=== PATIENT | female | born 1940 | race Caucasian/White ===

== ENCOUNTER 2024-06-19 18:36 | Inpatient (IN) | payer MEDICARE, BC, SELFPAY ==
[2024-06-19 15:26] VITALS: BP 185/84
[2024-06-19 15:56] VITALS: BP 179/65
--- NOTE | 2024-06-19 15:56 | ED.GENMED ---
History of Present Illness
<Alejandro Griggs PA-C - Last Filed: 06/19/24 19:38>
General
Chief Complaint: Swelling
Time Seen by Provider: 06/19/24 15:43
History of Present Illness
History of Present Illness:
84-year-old female with history of hypertension, cardiomyopathy, coronary artery disease, and hyperlipidemia presents to the emergency department for evaluation of shortness of breath on exertion and severe lower extremity edema. Patient has not
seen a healthcare provider in many years, in fact she estimates it has been at least 5 to 6 years since she was last evaluated by any healthcare providers. She had a fall 2 nights ago and needed EMS to come to help her back onto her feet, given
this her son traveled to visit her from another state and was concerned about her wellbeing. Patient states she can still adequately take care of herself and still leaves the home frequently to picking tech groceries or to run other errands.
Past History
<Alejandro Griggs PA-C - Last Filed: 06/19/24 19:38>
Past History
ED Past Medical History: HTN
ED Past Surgical History: Gynecological
Social History
Tobacco: Smoker
Alcohol: Occasional
Drug: None
Review of Systems
<Alejandro Griggs PA-C - Last Filed: 06/19/24 19:38>
Review of Systems
Allergies reviewed?: Yes
All Other Systems: ROS reviewed and negative except as documented in HPI and ROS
Phy Exam
<Alejandro Griggs PA-C - Last Filed: 06/19/24 19:38>
Physical Exam
Physical Exam:
GEN: Well appearing, NAD, WDWN
HEENT: Oral mucosa moist, no scleral icterus
Cardiac: Regular rate and rhythm, no murmur
Lung: No respiratory distress, no tachypnea, lungs CTAB
MSK: No gross deformity or injuries
Skin: Good color, no pallor or jaundice. Severe venous stasis dermatitis with massive edema of the lower extremities, copious skin sloughing and serous discharge
Neuro: AO x3, moves all extremities freely
Psych: Calm, cooperative
Scores
<Alejandro Griggs PA-C - Last Filed: 06/19/24 19:38>
Heart Failure Risk
Heart Failure Risk Score: Not Applicable
Course
<Alejandro Griggs PA-C - Last Filed: 06/19/24 19:38>
Orders/Labs/Results
Orders:
Orders
06/19/24 Breakfast
Regular
At Your Request: Limited Participation
06/19/24 15:56
Electrocardiogram (*1) Urgent
Reason for Study: Shortness of Breath
EKG- Treatment ONCE
CR Chest - 2 Views Urgent
Comment:
Reason For Exam: SOB/HUTCHISON
06/19/24 16:08
Complete Blood Count/No Diff Urgent
Comprehensive Metabolic Panel Urgent
NT-proBNP Urgent
Troponin I Urgent
06/19/24 17:20
CeFAZolin 2 GRAM [Ancef] 2 grams in 10 ml IV NOW
06/19/24 17:45
Admit/Transfer Patient As Directed
Co-Sign Provider:
Level of Care: Inpatient admission
Assign to:: Medical/Surgical
Physician / Group: paras
Diagnosis: cellulitis
Reason for Hospitalization: cellulitis
Expected length of stay greater than two midnights?: Yes
ELOS- Estimated Length of Stay in days: 3
I certify the patient meets the requirements for IP care: Yes
Code Status As Directed
Resuscitation Status: Full Code
PRN Pain Medication Management As Directed
May give lesser potent ordered pain med per pt: Yes
preference::
Protocol:: Medication orders for pain may be administered in a
manner that supports deferring to patient preference
when the pt is:
- Requesting an ordered lesser potent pain medication.
Least to most potent pain medications are defined
as: acetaminophen < NSAID < tramadol < opioids
(morphine, oxycodone, hydromorphone).
- Requesting a lesser dose of the same medication IF
ORDERED.
- Requesting a less intrusive route of administration
if both routes are prescribed by the provider (PO <
IV).
06/19/24 18:41
Enoxaparin Sodium [Lovenox] 40 mg SC QPM
06/19/24 18:41
WOUND/OSTOMY CONSULT Routine
Reason for Consult: b/l LE lymphedema
Activity As Directed
Activity Level: Out of Bed-Early Mobility
Intake/ Output As Directed
Frequency: Per unit guidelines
Vital Signs As Directed
Frequency: Per unit guidelines
Pt Eval And Treat Routine
Activity Level: As Tolerated
DX Deep Vein Thrombosis Video Routine
06/20/24 02:00
CeFAZolin 2 GRAM [Ancef] 2 grams in 10 ml IV Q8H
Abnormal Lab Results
06/19/24
16:08
MCHC 31.7 L g/dL
(33.0-37.0)
RDW 14.8 H %
(11.5-14.5)
Chloride 108 H mmol/L
(98-107)
BUN 20 H mg/dl
(7-17)
06/19/24 16:08
06/19/24 16:08
Vital Signs
Initial and Last Documented VS:
Initial Vital Signs
Temp Pulse Resp BP Pulse Ox
98.7 F 88 16 185/84 95
06/19/24 15:26 06/19/24 15:26 06/19/24 15:26 06/19/24 15:26 06/19/24 15:26
Last Documented Vital Signs
Temp Pulse Resp BP Pulse Ox
97.5 F 86 20 185/73 94
06/19/24 18:47 06/19/24 18:47 06/19/24 18:47 06/19/24 18:47 06/19/24 18:47
<Agustina Perera MD - Last Filed: 06/19/24 17:14>
Orders/Labs/Results
Orders:
Orders
06/19/24 Breakfast
Regular
At Your Request: Limited Participation
06/19/24 15:56
Electrocardiogram (*1) Urgent
Reason for Study: Shortness of Breath
EKG- Treatment ONCE
CR Chest - 2 Views Urgent
Comment:
Reason For Exam: SOB/HUTCHISON
06/19/24 16:08
Complete Blood Count/No Diff Urgent
Comprehensive Metabolic Panel Urgent
NT-proBNP Urgent
Troponin I Urgent
06/19/24 17:20
CeFAZolin 2 GRAM [Ancef] 2 grams in 10 ml IV NOW
06/19/24 17:45
Admit/Transfer Patient As Directed
Co-Sign Provider:
Level of Care: Inpatient admission
Assign to:: Medical/Surgical
Physician / Group: paras
Diagnosis: cellulitis
Reason for Hospitalization: cellulitis
Expected length of stay greater than two midnights?: Yes
ELOS- Estimated Length of Stay in days: 3
I certify the patient meets the requirements for IP care: Yes
Code Status As Directed
Resuscitation Status: Full Code
PRN Pain Medication Management As Directed
May give lesser potent ordered pain med per pt: Yes
preference::
Protocol:: Medication orders for pain may be administered in a
manner that supports deferring to patient preference
when the pt is:
- Requesting an ordered lesser potent pain medication.
Least to most potent pain medications are defined
as: acetaminophen < NSAID < tramadol < opioids
(morphine, oxycodone, hydromorphone).
- Requesting a lesser dose of the same medication IF
ORDERED.
- Requesting a less intrusive route of administration
if both routes are prescribed by the provider (PO <
IV).
06/19/24 18:41
Enoxaparin Sodium [Lovenox] 40 mg SC QPM
06/19/24 18:41
WOUND/OSTOMY CONSULT Routine
Reason for Consult: b/l LE lymphedema
Activity As Directed
Activity Level: Out of Bed-Early Mobility
Intake/ Output As Directed
Frequency: Per unit guidelines
Vital Signs As Directed
Frequency: Per unit guidelines
Pt Eval And Treat Routine
Activity Level: As Tolerated
DX Deep Vein Thrombosis Video Routine
06/20/24 02:00
CeFAZolin 2 GRAM [Ancef] 2 grams in 10 ml IV Q8H
Abnormal Lab Results
06/19/24
16:08
MCHC 31.7 L g/dL
(33.0-37.0)
RDW 14.8 H %
(11.5-14.5)
Chloride 108 H mmol/L
(98-107)
BUN 20 H mg/dl
(7-17)
06/19/24 16:08
06/19/24 16:08
Vital Signs
Initial and Last Documented VS:
Initial Vital Signs
Temp Pulse Resp BP Pulse Ox
98.7 F 88 16 185/84 95
06/19/24 15:26 06/19/24 15:26 06/19/24 15:26 06/19/24 15:26 06/19/24 15:26
Last Documented Vital Signs
Temp Pulse Resp BP Pulse Ox
97.5 F 86 20 185/73 94
06/19/24 18:47 06/19/24 18:47 06/19/24 18:47 06/19/24 18:47 06/19/24 18:47
<Alejandro Griggs PA-C - Last Filed: 06/19/24 19:38>
MDM/Problems Addressed
MDM/Problems Addressed:
Although labs are reassuring, pt is clearly not suitable to continue to manage her situation at home. She is not reliable as far as outpatient follow up, thus will benefit from inpatient hospitalization for antibiotics, wound care and possible case
management/PT/OT considerations
<Alejandro Griggs PA-C - Last Filed: 06/19/24 19:38>
*Critical Care Note
Total Time (30-74mins, 75-104mins- exclusive of procedures): Not Applicable
ED Attending Note
<Alejandro Griggs PA-C - Last Filed: 06/19/24 19:38>
-
Portions of this chart may have been created with voice recognition software.� Occasional wrong word or��sound alike� substitutions may have occurred due to the inherent limitations of voice recognition software.
<Agustina Perera MD - Last Filed: 06/19/24 17:14>
ED Attending Note
Patient seen and examined by attending physician: Yes
I performed the substantive portion of visit, reviewed & personally made and approve the management plan that is documented in note by myself or MIRELA.: Yes
ED Attending Note:
84 yr old female presents with le edema with foul smeeling weeping that was noted by son upon his visit now....he has not seen her in one year and was unaware of this. Pt salcido not seen a doctor in years. She says she can perform ADL's, however son
says she is 'barely getting by' , house is in disarray, etc. Pt does sleep in a chair downstairs and only goes upstairs to shower. She denies cp/n/v/anorexia. She does note 2 pillow orthopnea, not new. Pt with very foul smellig le bilat with
surroundig redness and warmth. Recommend case managemet conult, wound care consult, abx. etc. Pt not in heart failure.
Discharge Plan
Departure
Patient Disposition: Admit
Date of Disposition: 06/19/24
Time of Disposition: 17:21
Admit to: Med/Surg
Presentation/result/management discussed w/ accepting MD/DO: Hospitalist
Discharge Problem:
Lymphedema of both lower extremities
Interventions
Interventions:
*Risk Screen - Suicide Last Done: 06/19/24 15:26
*General Assessment Last Done: 06/19/24 16:01
*Neglect/Abuse Screening Last Done: 06/19/24 15:28
*ED- Fall Risk Assessment Last Done: 06/19/24 16:01
*ED COVID-19 Vaccine History Last Done: 06/19/24 16:01
*Nursing Disposition Last Done: 06/19/24 18:34
ED- Cardiac Assessment Last Done: 06/19/24 16:01
ED- Pulmonary Assessment Last Done: 06/19/24 16:01
ED-Skin Assessment Last Done: 06/19/24 16:01
Discharge Date and Time
Discharge Date/Time: 06/19/24 18:35
[2024-06-19 16:00] VITALS: BP 147/65
[2024-06-19 16:29] LABS: Hematocrit 39.8 % (37.0-47.0); Hemoglobin 12.6 g/dL (12.0-16.0); Mean Corp Hgb Conc. 31.7 g/dL (33.0-37.0); Mean Corpuscular Hgb 27.4 pg (27.0-31.0); Mean Corpuscular Volume 86.5 fL (81.0-99.0); Mean Platelet Volume 10.1 fL (7.4-10.4); Platelet Count 211 10^3/uL (130-400); Red Cell Dist. Width 14.8 % (11.5-14.5); White Blood Cell Count 7.2 10^3/uL (4.8-10.8)
[2024-06-19 16:43] LABS: ALT (SGPT) 17 U/L (0-35); AST (SGOT) 33 U/L (14-36); Albumin 3.6 g/dl (3.5-5.0); Alkaline Phosphatase 45 U/L (38-126); Blood Urea Nitrogen 20 mg/dl (7-17); Carbon Dioxide 28 mmol/L (22-30); Chloride 108 mmol/L (98-107); Glucose 99 mg/dl (70-99); Potassium 4.5 mmol/L (3.5-5.1); Sodium 142 mmol/L (135-145); Total Bilirubin 0.8 mg/dl (0.2-1.3); eGFR > 60.00
[2024-06-19 16:55] LABS: NT-proBNP 156 pg/ml; Troponin I < 0.012 ng/ml
[2024-06-19 17:00] VITALS: BP 164/72
--- NOTE | 2024-06-19 17:25 | HPS.HSE ---
Family Physician
-
Family Physician: * NONE
Chief Complaint
-
b/l Le wounds/lymphedema
History of Present Illness
84-year-old female with history of hypertension, cardiomyopathy, coronary artery disease, and hyperlipidemia,b/l Le lymphedema presents to the emergency department for evaluation worsening of b/l LE lymphedema. her legs got more swollen, worsening
redness and weeping recently. two nights ago, she had a fall after losing balance. her son traveled to visit her from another state and was concerned about her wellbeing. Patient states she can still adequately take care of herself and still
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 she was using space heater to warm herself, but her redness , swelling and weeping got worse. denied fever, chills, BUTLER,dizzy. denied chest pain. denied abdominal pain,n,v,d.
denied dysuria or hematuria. she gets winded when walking.
Patient is ordered Ancef in ER. Admitting for further management
Medical History
Past Medical History
Past Medical History: Reports Other
Additional Past Medical History:
Coronary artery disease
Hyperlipidemia
NV
Chest pain
Mitral regurgitation
Hypertension
Past Surgical History: Reports Other
Additional Past Surgical History:
Hysterectomy
Hemorrhoidectomy
Social History
Tobacco: Smoker (1 pack a day)
Alcohol: None
Drug: None
Personal: Single
Living: Alone
Family History
Family History: Not pertinent
Allergies / Home Medications
Allergies reflects when Allergies were last updated in [facility].
Home Medications with original date entered in [facility]
Allergy/Medication List:
Allergies
Allergy/AdvReac Type Severity Reaction Status Date / Time
levofloxacin [From Levaquin] Allergy ANXIETY,FRANCISCA Verified 05/08/17 10:59
LUCINATIONS
ANTIBIOTIC Allergy Unknown Uncoded 05/08/17 10:59
Home Medications
No Meds [No Current Medications] 06/19/24
Review of Systems
-
Constitutional: Reports No Symptoms
EENT: Reports No Symptoms
Respiratory: Reports No Symptoms
Cardiac: Reports No Symptoms
Abdomen/GI: Reports No Symptoms
: Reports No Symptoms
Musculoskeletal: Reports No Symptoms
Skin: Reports Other (Bilateral lower extremity lymphedema, redness, serous discharge)
Neurological: Reports No Symptoms
Endocrine: Reports No Symptoms
Hematologic/Lymphatic: Reports No Symptoms
Psych: Reports No Symptoms
Physical Exam
Vital Signs
Vital Signs
Temp Pulse Resp BP Pulse Ox
98.7 F 87 21 147/65 95
06/19/24 15:26 06/19/24 16:15 06/19/24 16:15 06/19/24 16:00 06/19/24 16:15
Physical Exam
General: Well Developed, Well Nourished and No Apparent Distress
HEENT: NormoCephalic, Moist mucous membranes and Atraumatic
Respiratory: Clear
Cardiac: S1/S2 and Regular Rhythm; No Murmur or Rub
GI: Soft, Non Tender, Non Distended and Normal Bowel Sounds; No Organomegaly
Rectal: Deferred by Provider
Musculoskeletal: No Clubbing, No Cyanosis and No Edema
Skin: Rash and Other (Bilateral lower extremities edema, red and serous drainage)
Neuro: AO x 3 and Nonfocal/grossly intact
Psych: Calm
Laboratory Results
-
06/19/24 16:08
06/19/24 16:08
Laboratory Results
Total Bilirubin 0.8 mg/dl (0.2-1.3) 06/19/24 16:08
AST 33 U/L (14-36) 06/19/24 16:08
ALT 17 U/L (0-35) 06/19/24 16:08
Alkaline Phosphatase 45 U/L (38-126) 06/19/24 16:08
Troponin I < 0.012 ng/ml 06/19/24 16:08
Data Reviewed
-
Lab Data: Labs Reviewed by me
Impression/Plan
-
# Severe bilateral lower extremities lymphedema likely with superinfection/cellulitis
-IV Ancef continued
-Wound care consulted
-Tylenol as needed for fever
# History of hypertension, hyperlipidemia, questionable NV
-Stopped taking Coreg, statin during COVID time
#sob
-chest x ray pending
-oxygenating very well on RA
#current smoker
-smokes 1 pack day
-denied nicotine patch
-encouraged smoking cessation.
# DVT prophylaxis Lovenox
# CODE STATUS
-Full code
[2024-06-19] MEDS: ANCEF 10 IV (17:47)
--- NOTE | 2024-06-19 18:09 | W.PN.UPDATE ---
Update Note
Progress Note Update
This is an addendum to H&P written by Terri Esquivel on 06/19/2024.� Patient seen and examined independently with EDI ARCHITECT.
84-year-old female past medical history of CAD, apical ballooning syndrome, cardiomyopathy, chronic lymphedema, hyperlipidemia, presenting with shortness of breath on exertion and severe lower extremity edema.� Fell 2 nights ago.
Labs unremarkable.� Cardiac BNP of 150.� Chest x-ray appears to show right lower lobe consolidation/pleural fluid.� Report pending.
Presentation consistent with acute superinfection of bilateral lower extremity lymphedema.� Cefazolin.
[2024-06-19 18:47] VITALS: BP 185/73
[2024-06-19] MEDS: LOVENOX SC (20:35)
[2024-06-19 23:25] VITALS: BP 145/54
[2024-06-20] MEDS: ANCEF 10 IV ×3 (01:11→17:15)
[2024-06-20 07:37] VITALS: BP 151/56
--- NOTE | 2024-06-20 08:01 | PTOTSP ---
Please order occupational therapy for ADL dysfunction and SNF placement. Thank you.
[2024-06-20 10:06] VITALS: BP 140/57; PULSE 86; O2SAT 90
[2024-06-20 10:09] VITALS: BP 140/57; PULSE 88; O2SAT 90
--- NOTE | 2024-06-20 10:38 | CM ---
Patient in bathroom with PT/OT working with her. CM spoke with patient son Suman, who now lives in [facility]. Per Suman his other brother lives in [place]. Patient does not have a PCP, patient does not have any DME in the home. Patient lives in a
split level home. Patient has to go up the stairs to shower, but has been sleeping in her recliner. Patient uses [facility] [place] per son. Patient son with many questions. CM reviewed options and provided information about resources,
including Medicare.gov, a place for mom, aaa bc and PCP information. Pending PT/OT assessment and medical treatment plan, discharge will be dependent upon patient functional status and medical treatment plan. CM will continue to follow for discharge
planning needs.
Plan; SNF vs home with VN; watch for medical treatment plan recommendations
--- NOTE | 2024-06-20 14:49 | W.PN.HOSP.TC ---
Today's Communication/Plan
-
see plan
Assessment / Plan
Assessment / Plan
# Severe bilateral lower extremities lymphedema likely with superinfection/cellulitis
-IV Ancef continued
-Wound care consulted - will obtain LE arterial US
outpt referral to lymphedema clinic
-Tylenol as needed for fever
# History of hypertension, hyperlipidemia, questionable PR
-Stopped taking Coreg, statin during COVID time
#sob
-chest x ray - lungs clear
-oxygenating very well on RA
#current smoker
-smokes 1 pack day
-denied nicotine patch
-encouraged smoking cessation.
# DVT prophylaxis Lovenox
# CODE STATUS
-Full code
d/w family
Anticipated Discharge: 24 - 48 hours
Subjective/Interval History
-
Date of Service: June 20, 2024
pt states she is afebrile
states Le still with some drainage
Objective Data
-
Vital Signs:
Vital Signs
Temp Pulse Resp BP Pulse Ox
99 F 88 20 151/56 92
06/20/24 07:37 06/20/24 07:37 06/20/24 07:37 06/20/24 07:37 06/20/24 13:44
I&O
06/19/24 06/20/24 06/21/24
06:59 06:59 06:59
Intake Total 480 / 480
Balance 480 / 480
Review of Systems
-
History Source: Patient
All other systems: Reviewed and negative
Skin: Reports Skin Thickening
Physical Exam
-
General: Well Developed and No Apparent Distress
HEENT: Normocephalic, Atraumatic and Moist Mucous Membranes
Respiratory: Clear to Auscultation
Cardiac: Regular Rhythm and S1/S2; Negative Murmur, Rub or Gallop
GI: Soft, Nontender, Nondistended and Normal Bowel Sounds; Negative Organomegaly
Rectal: Deferred by Provider
Musculoskeletal: No Clubbing, No Cyanosis, Edema, Right Lower Extrem and Edema, Left Lower Extrem
Skin: Other (venous stasis changes le ); Negative Rash
Neuro: Nonfocal/Grossly Intact
Data Reviewed
-
Diagnostic Radiology: Report Reviewed by me and Discussed with Family
Labs: Labs Reviewed by me and Discussed with Family
--- NOTE | 2024-06-20 15:00 | WOUNDNOTE ---
SACRUM/BUTTOCKS [id number] 1940
--- NOTE | 2024-06-20 15:00 | WOUNDNOTE ---
RIGHT POSTERIOR THIGH
--- NOTE | 2024-06-20 15:00 | WOUNDNOTE ---
BILATERAL LE- ANTERIOR VIEW
--- NOTE | 2024-06-20 15:00 | WOUNDNOTE ---
LEFT POSTERIOR LEG
--- NOTE | 2024-06-20 15:00 | WOUNDNOTE ---
[facility] RN NOTE: Reviewed chart and met with patient and son. Patient resides at home alone w/o assistance. Patient had a recent fall out of a chair and has a blanchable ecchymotic posterior thigh. Patient ambulates at home and wears and incontinence
pad. A small area likely MASD noted on right buttock, Calazime applied. Sacrum in intact. Patient has been ambulating to in hospital. Heels are blanchable and intact. [facility] RN received consult for lymphedema. Patient has what appears to be
significant lipodermatosclerosis. No open areas noted.Patient does not wear compression and provides to special treatment to her legs. Explained to son and patient that for treatment they wound need to follow up at lymphedema clinic (info added to
discharge instructions). Patient had + audible pedal pulse. Recommended additional arterial studies to Hospitalist, Dr. Gonzales. Christian Chow confirmed order for compression. Legs were washed with Vashe and normal saline and moisturizer applied. Will
recommend use of Mineral oil and to cover any open areas with ABD. Compression applied with CHRISTIANO and heels off-loaded on 2 pillows. Heels are blanchable and intact. Encouraged patient to change position frequently in bed. Patient is in an [employer] and can turn in bed. Orders, care plan and discharge updated. Son updated on plan of care. Will follow up as needed.
[2024-06-20 15:54] VITALS: BP 166/76
--- NOTE | 2024-06-20 16:26 | WOUNDNOTE ---
POSTERIOR THIGH 1940, [id number]
--- NOTE | 2024-06-20 16:32 | WOUNDNOTE ---
BUTTOCKS/SACRUM 1940 [id number]
[2024-06-20] MEDS: LOVENOX 40 MG SC (17:12)
[2024-06-20 23:14] VITALS: BP 138/77
[2024-06-21] MEDS: ANCEF 10 IV ×2 (02:01→10:08)
--- NOTE | 2024-06-21 05:11 | PTCARENOTE ---
Wound care completed. No serous drainage noted. Leg covered in mineral oil and wrapped with angela.
[2024-06-21] MEDS: HYDROPHOR 1 APPLIC TOPICAL (05:27)
[2024-06-21 07:22] LABS: % Basophils 0.5 % (0-2); % Eosinophils 1.9 % (0-6); % Immature Granulocytes 0.5 % (0-0.5); % Lymphocytes 22.7 % (20.5-51.1); % Monocytes 7.6 % (1.7-9.3); % Neutrophils 66.8 % (42.2-75.2); Absolute Eosinophils 0.1 10^3/uL (0-0.7); Absolute Lymphocytes 1.4 10^3/uL (1.2-3.4); Absolute Monocytes 0.5 10^3/uL (0.1-0.6); Absolute Neutrophils 4.2 10^3/uL (1.4-6.5); Hematocrit 37.4 % (37.0-47.0); Hemoglobin 11.9 g/dL (12.0-16.0); Mean Corp Hgb Conc. 31.8 g/dL (33.0-37.0); Mean Corpuscular Hgb 27.4 pg (27.0-31.0); Mean Corpuscular Volume 86.2 fL (81.0-99.0); Mean Platelet Volume 10.3 fL (7.4-10.4); Nucleated Red Blood Cells % 0 %; Platelet Count 195 10^3/uL (130-400); Red Blood Cell Count 4.34 10^6/uL (4.20-5.40); Red Cell Dist. Width 14.9 % (11.5-14.5); White Blood Cell Count 6.3 10^3/uL (4.8-10.8)
[2024-06-21 07:25] VITALS: BP 132/71
[2024-06-21 08:00] LABS: ALT (SGPT) 10 U/L (0-35); AST (SGOT) 25 U/L (14-36); Albumin 3.2 g/dl (3.5-5.0); Alkaline Phosphatase 46 U/L (38-126); Blood Urea Nitrogen 15 mg/dl (7-17); Calcium 8.8 mg/dl (8.4-10.2); Carbon Dioxide 26 mmol/L (22-30); Chloride 108 mmol/L (98-107); Estimated Creatinine Clearance 65 ml/min; Glucose 102 mg/dl (70-99); Potassium 4.2 mmol/L (3.5-5.1); Sodium 140 mmol/L (135-145); Total Bilirubin 0.5 mg/dl (0.2-1.3); Total Protein 6.1 g/dl (6.3-8.2); eGFR > 60.00
--- NOTE | 2024-06-21 10:57 | W.PN.HOSP.TC ---
Today's Communication/Plan
-
Continue local wound care
Assessment / Plan
Assessment / Plan
Gen-AAOx3, NAD
HEENT-NC, AT, anicteric, clear oral mm
Neck-supple
CV-reg, no M, +S1/S2
Lungs-clear B/L
Abd-soft, NT, ND
Ext-bilateral lower extremity hyperpigmentation and edema, Cody wraps, no bright red erythema
Musculoskeletal-no cyanosis, clubbing
Skin-warm and dry
Neuro-grossly non-focal
Psych-calm, cooperative
Severe bilateral lower extremity lymphedema, venous stasis dermatitis -doubt cellulitis. Stop antibiotics. Continue compression therapy and local wound care. Follow-up with lymphedema clinic after discharge. Discussed with patient and family.
Essential hypertension
Hyperlipidemia
Tobacco dependence
-smokes 1 pack day
-denied nicotine patch
-encouraged smoking cessation.
Obesity due to excess calories
DVT prophylaxis Lovenox
Full code
Dispo -stable for discharge to SNF. Case management updated. Updated son at the bedside.
Anticipated Discharge: 24 - 48 hours
Subjective/Interval History
-
Date of Service: June 21, 2024
Patient seen and examined. No new complaints.
Objective Data
-
Labs:
Laboratory Results
06/21/24
06:48
WBC 6.3
Hgb 11.9 L
Hct 37.4
Plt Count 195
Sodium 140
Potassium 4.2
Chloride 108 H
Carbon Dioxide 26
BUN 15
Creatinine 0.7
Glucose 102 H
Calcium 8.8
Total Bilirubin 0.5
AST 25
ALT 10
Alkaline Phosphatase 46
Vital Signs:
Vital Signs
Temp Pulse Resp BP Pulse Ox
98.0 F 83 20 132/71 9
06/21/24 07:25 06/21/24 07:25 06/21/24 07:25 06/21/24 07:25 06/21/24 07:25
I&O
06/20/24 06/21/24 06/22/24
06:59 06:59 06:59
Intake Total 480 / 480 720 / 720
Balance 480 / 480 720 / 720
Review of Systems
-
History Source: Patient
All other systems: Reviewed and negative
--- NOTE | 2024-06-21 14:59 | CM ---
Addendum entered by Klaudia Medina RN 06/21/24 16:39:
As per Miriam she will call son tomorrow to discuss his concerns/questions. CM will await that conversation to confirm transfer.
Addendum entered by Klaudia Medina RN 06/21/24 16:33:
Patient's son is agreeable to [facility]. Son has multiple questions regarding wound care that is available at [facility]. CM requested that Miriam from [facility] call son to discuss his concerns.
Addendum entered by Klaudia Medina RN 06/21/24 16:13:
[facility] has accepted for tomorrow. CM will call admission coordinator to confirm transfer.
Original Note:
CM reviewed medical records. CM sent referrals to [facility]. [facility], [facility], [facility].
Patient will meet the three midnight requirement tomorrow and would be ready for discharge if bed is confirmed.
[2024-06-21 15:20] VITALS: BP 186/86
[2024-06-21] MEDS: LOVENOX 40 MG SC (17:38)
[2024-06-21 23:13] VITALS: BP 126/72
[2024-06-22 07:40] VITALS: BP 150/79
[2024-06-22] MEDS: HYDROPHOR 1 APPLIC TOPICAL (08:11)
--- NOTE | 2024-06-22 09:32 | W.PN.HOSP.TC ---
Today's Communication/Plan
-
Losartan
Check arterial Doppler ultrasound, NATASHA
Discharge planning
Assessment / Plan
Assessment / Plan
Gen-AAOx3, NAD
HEENT-NC, AT, anicteric, clear oral mm
Neck-supple
CV-reg, no M, +S1/S2
Lungs-clear B/L
Abd-soft, NT, ND
Ext-bilateral lower extremity hyperpigmentation, lichenification, and edema, Cody wraps, no bright red erythema
Musculoskeletal-no cyanosis, clubbing
Skin-warm and dry
Neuro-grossly non-focal
Psych-calm, cooperative
Severe bilateral lower extremity lymphedema, venous stasis dermatitis -doubt cellulitis. Stopped antibiotics. Continue compression therapy and local wound care. Follow-up with lymphedema clinic after discharge. Discussed with patient and family.
Check lower extremity arterial Doppler, NATASHA per wound care recommendation.
Essential hypertension -unclear why she stopped her meds. She blames everything on COVID, stopped going to the doctor as a result.
She is agreeable to start losartan, recommend outpatient follow-up with PCP. Currently does not have a PCP and I encouraged her to obtain one as soon as possible.
Hyperlipidemia -previously on Zocor.
Tobacco dependence
-smokes 1 pack day
-denied nicotine patch
-encouraged smoking cessation.
Obesity due to excess calories
DVT prophylaxis Lovenox
Full code
Dispo -will need SNF on discharge. Patient insists on obtaining lower extremity arterial Doppler prior to discharge.
Anticipated Discharge: Within 24 hours
Subjective/Interval History
-
Date of Service: June 22, 2024
Patient seen and examined. No complaints.
Objective Data
-
Vital Signs:
Vital Signs
Temp Pulse Resp BP Pulse Ox
97.4 F 72 18 150/79 93
06/22/24 07:40 06/22/24 07:40 06/22/24 07:40 06/22/24 07:40 06/22/24 07:40
I&O
06/21/24 06/22/24 06/23/24
06:59 06:59 06:59
Intake Total 720 / 720 960 / 960
Balance 720 / 720 960 / 960
Review of Systems
-
History Source: Patient
All other systems: Reviewed and negative
[2024-06-22] MEDS: COZAAR 25 MG PO (11:16)
--- NOTE | 2024-06-22 12:06 | CM ---
manager intensive care unit reviewed patient's chart and met with patient and son at bedside, plan is for patient to transfer to [facility], admissions from [facility] to reach out to patient's son to review care at [facility] per
patient's son his father was at [facility].
Plan; Skilled placement at [facility] when stable, will need to confirm bed prior to discharge.
[2024-06-22 15:18] VITALS: BP 138/60
[2024-06-22] MEDS: LOVENOX SC (17:36)
[2024-06-22 23:33] VITALS: BP 170/82
[2024-06-23 07:42] VITALS: BP 172/81
--- NOTE | 2024-06-23 09:18 | W.PN.HOSP.TC ---
Today's Communication/Plan
-
Echocardiogram. Vascular surgery eval. GI eval.
Assessment / Plan
Assessment / Plan
Physical exam:
General: Appears acute on chronically ill. Nontoxic appearance
HEENT: Normocephalic, Atraumatic and Moist Mucous Membranes
Respiratory: Clear to Auscultation; Negative Wheezes, Rales or Rhonchi
Cardiac: Regular Rhythm and S1/S2
GI: Soft, Nontender and Nondistended
Musculoskeletal: No Clubbing, No Cyanosis. Bilateral lower extremity edema. Bilateral lower extremity hyperpigmentation, lichenification, and edema, Cody wraps, no bright red erythema
Neuro: Awake, Alert and Oriented
Psych: Calm
A/P:
Bilateral lower extremity lymphedema with venous stasis dermatitis (ruled out cellulitis):
-continue compression stockings
-Rule out cardiac etiology- check echocardiogram.
-Discussed with family at bedside, son and [id number]
Evidence of peripheral vascular disease by NATASHA:
-vascular surgery consult
-Might have underlying CAD
-Holding antiplatelets until GI eval
-Check fasting lipids in a.m.
Smoker:
-Strongly advised quit smoking in the setting of PVD
Hypertension:
-started on ARB (she has cough with CODY inhibitor).
-Might need further adjustments
Acute lower GI bleed-diarrhea with bright blood per rectum:
-rule out infectious etiology, check C. difficile and stool cultures.
-She never had a colonoscopy.
-GI consult-might need colonoscopy but will defer to GI either inpatient or outpatient
Acute blood loss anemia:
-Monitor hemoglobin closely
DVT prophylaxis:
Hold Lovenox due to anemia and lower GI bleed
SCDs
CODE STATUS
Full code
Total time spent on today's encounter was 52 minutes which included time spent in counseling the patient/family regarding diagnosis and treatment plan as listed above, goals of care, and symptom management. Case was discussed with nursing staff,
specialists, and care coordinators/case management. All labs and imaging personally reviewed by me. Remainder the time spent in detailed review of previous records, lab data, imaging, and other medical provider documentation.
Anticipated Discharge: 24 - 48 hours
Subjective/Interval History
-
Date of Service: June 23, 2024
Patient reports diarrhea with bright blood per rectum. She has lower extremity edema and legs are wrapped up with compression stockings. She also reports dyspnea on exertion. No chest pain. Afebrile
Objective Data
-
Vital Signs:
Vital Signs
Temp Pulse Resp BP Pulse Ox
98.3 F 81 22 172/81 93
06/23/24 07:42 06/23/24 07:42 06/23/24 07:42 06/23/24 07:42 06/23/24 07:42
I&O
06/22/24 06/23/24 06/24/24
06:59 06:59 06:59
Intake Total 960 / 960 240 / 240
Balance 960 / 960 240 / 240
[2024-06-23] MEDS: COZAAR 25 MG PO (09:46)
[2024-06-23] MEDS: HYDROPHOR 1 APPLIC TOPICAL (09:46)
--- NOTE | 2024-06-23 10:46 | CM ---
Spoke with [facility] [place] bed is ready when pt ready for dc.
As per pt not ready for dc today.
Will need to review transportation with family at dc.
[facility]
report [phone]
fax [phone]
PLAN [facility] when medically ready
--- NOTE | 2024-06-23 12:04 | CON.GI ---
Addendum entered and electronically signed by Melani Reyes MD 06/23/24 17:35:
I saw and examined the patient.
The resident's note was reviewed and I agree with the note.
Comment: 84-year-old female with history of hypertension, high cholesterol, CAD, chronic lymphedema admitted to the hospital with bilateral lower extremity edema, GI consult was called in for bright blood on wiping. As per patient, she has had
history of hemorrhoidectomy several years ago and she would have intermittent wipe type bleeding. In the hospital she received antibiotics and had diarrhea episodes up to 6 times a day and she started having wipe type bleeding with bowel movements
with irritation around the perianal area. Stool itself was brown. No rectal pain. No abdominal pain, nausea or vomiting. No heartburn or trouble swallowing. She does have chronic constipation at baseline with some pushing and straining. No
unintentional weight loss. Family history of colon cancer in mother in her 70s. Patient never had colonoscopy. Hemoglobin stable without any evidence of anemia.
Rectal exam showing brown stool without any active bleeding.
Likely cause of rectal bleeding is hemorrhoidal.
However, patient never had colonoscopy. I did explain to patient and son that if she has further episodes of bleeding, it might be best to do colonoscopy and gave them the office number to call and make an appointment.
For now start Metamucil 1 tablespoon daily, local perirectal care.
Okay to use Preparation H suppositories if needed for bleeding.
Will sign off, please call back if needed.
Original Note:
Consultation
-
Date/Time Consultation Requested: 06/23/24
Date/Time Consultation Performed: 06/23/24
Requesting Provider:
Performing Provider: ,
Reason for Consultation: Rectal bleeding, diarrhea
Medical History
Chief Complaint / HPI
Chief Complaint: Rectal Bleed
History of Present Illness:
This is a 84 yo F patient with PMH of hypertension, cardiomyopathy, coronary artery disease, and hyperlipidemia,bilateral chronic lower extremity lymphedema who presented to the ED for concerns of worsening bilateral lower extremity swelling. The
patient had fallen 2 days before her admission. She states that she then started to notice her LE become more red, swollen and had weeping wounds. During her hospitalization she was initially treated with antibiotics on 06/19(Anc) due to concerns
of cellulitis but it was discontinued on 06/21 when it was thought wounds were thought to be more so due to venous stasis. Doppler Extemity Arterial Study abnormal.
Today patient had noticed bright red blood while wiping but no red blood in the toilet bowel along with loose stools. She states that she sometimes has mild constipation with straining and uses colace during these episodes. She has had hemorrhoids
in the past and has had hemorrhoidectomy in her 30s. She has never had a colonoscopy or cologuard in the past. She denies any fever, chills or abdominal pain.
Past Medical History
Past Medical History: CAD, HTN, Hypercholesterolemia, [place] and Other (cardiomyopathy, chronic bilateral lymphedema)
Past Surgical History: Other (Hysterectomy Hemorrhoidectomy)
Social History
Tobacco: Smoker (1 pack/day)
Alcohol: None
Drug: None
Personal: Single
Living: Alone
Allergies / Home Medications
Allergy/AdvReac Type Severity Reaction Status Date / Time
levofloxacin [From Levaquin] Allergy ANXIETY,FRANCISCA Verified 05/08/17 10:59
LUCINATIONS
ANTIBIOTIC Allergy Unknown Uncoded 05/08/17 10:59
�Medication �Instructions �Recorded
No Meds [No Current Medications] 06/19/24
Review of Systems
-
All other systems: A 12 pt ROS was Negative except as stated above in HPI
Vital Signs
Temp Pulse Resp BP Pulse Ox
98.3 F 82 22 170/80 93
06/23/24 07:42 06/23/24 09:46 06/23/24 07:42 06/23/24 09:46 06/23/24 07:42
Physical Exam
Exam
General: No Apparent Distress
HEENT: Normocephalic
Respiratory: Clear
Cardiac: S1/S2 and Regular Rhythm
GI: Soft, Non Tender and Non Distended
Musculoskeletal: No Cyanosis and No Edema
Skin: Warm and Dry
Neuro: Awake, Alert and Oriented
Psych: Calm
Results
WBC 6.3 10^3/uL (4.8-10.8) 06/21/24 06:48
Hgb 11.9 g/dL (12.0-16.0) L 06/21/24 06:48
Hct 37.4 % (37.0-47.0) 06/21/24 06:48
MCV 86.2 fL (81.0-99.0) 06/21/24 06:48
Plt Count 195 10^3/uL (130-400) 06/21/24 06:48
Absolute Neuts (auto) 4.2 10^3/uL (1.4-6.5) 06/21/24 06:48
Sodium 140 mmol/L (135-145) 06/21/24 06:48
Potassium 4.2 mmol/L (3.5-5.1) 06/21/24 06:48
Chloride 108 mmol/L (98-107) H 06/21/24 06:48
Carbon Dioxide 26 mmol/L (22-30) 06/21/24 06:48
BUN 15 mg/dl (7-17) 06/21/24 06:48
Creatinine 0.7 mg/dL (0.6-1.0) 06/21/24 06:48
Calcium 8.8 mg/dl (8.4-10.2) 06/21/24 06:48
Total Bilirubin 0.5 mg/dl (0.2-1.3) 06/21/24 06:48
AST 25 U/L (14-36) 06/21/24 06:48
ALT 10 U/L (0-35) 06/21/24 06:48
Alkaline Phosphatase 46 U/L (38-126) 06/21/24 06:48
Diagnostic Image Results:
Prior GI Procedures:
EGD: n/a
Colonoscopy: n/a
Assessment / Plan
-
Impression:
This is a 84yo F patient with PMH of hypertension, cardiomyopathy, coronary artery disease, and hyperlipidemia, chronic bilateral lymphedema who presented to the ED initially with concerns of b/l leg swelling and erythema. She has hx of hemorrhoids
in the past with hemorrhoidectomy and now has rectal bleeding with diarrhea.
Assessment/Plan:
#Rectal Bleed with diarrhea
- Hb decreased to 11.9 from 12.6
- Trend hemoglobin, transfuse hemoglobin less than 7
- Stool studies pending
- Bleeding can be diverticular vs hemorrhoids, may be colonoscopy for further evaluation
- Further recommendations to be forthcoming
-
-
Thank you for consultation and allowing me to participate in the patient's care. Please call the developmental education instructor GI physician during the after hours with any questions or concerns.
--- NOTE | 2024-06-23 12:13 | CON.VAS ---
Addendum entered and electronically signed by Rickey Perera III, MD 06/23/24 18:14:
This patient was seen and examined in collaboration with SHIRA Ward. I agree with the history and physical exam as well as the assessment and plan. I have the following additions:
84-year-old female
Chronic lower extremity swelling bilaterally
Heavy skin scaling for several years
Denies lower extremity claudication
Denies rest pain in her feet/toes
She has no open wounds or ulcerations on her feet or toes bilaterally.
On physical exam she has diffuse edema of her legs bilaterally
Severe thick scaling and lichenification of her bilateral calves
No open wounds bilaterally
Feet pink/warm bilat
Severe foot edema bilat
Arterial studies reviewed - she has midly reduced NATASHA's bilaterally. Velocity elevations in the bilateral SFA's consistent with stenosis.
Her physical exam findings are more consistent with skin changes due to lymphedema rather than from an arterial occlusive etiology.
Refer to wound care center for followup
Compression
Local wound care
Can followup with me in the office for ongoing surveillance
Call with questions/concerns
Signed:
Rickey Perera III, MD
[facility]
[phone] (quky)
Original Note:
Consultation
Consultation Request
Date/Time Consultation Performed: 06/23/24
Requesting Provider: Hospitalist
Performing Provider: Janet Sims NP-C for Rickey Perera III
Reason for Consultation: Bilateral lower extremity lymphedema
Medical History
-
Chief Complaint: Dyspnea on exertion accompanied with bilateral lower extremity edema
History of Present Illness:
This is a 84-year-old female with significant past medical history for hypertension, cardiomyopathy, coronary disease, hyperlipidemia, and active smoker who presented to [facility] ED on 06/19/2024 reporting roughly 2 days of increased shortness of
breath/dyspnea on exertion accompanied with bilateral lower extremity worsening edema. According to ED chart review patient also endorsed falling roughly 2 nights prior to ED evaluation and required EMS to assist with getting her off the floor.
Patient states bilateral lower extremity swelling and 'scaly 'skin started roughly 3 to 4 years ago, but she was able to manage with lotion and elevation. She reports over this past winter she obtained a space heater and has noted since utilization
of space heater she has had increase in scales and discoloration of bilateral lower extremities. Also endorses noncompliance with medical management and has not seen a physician or healthcare provider in the past roughly 6 years. Patient denies
claudication or rest pain. Her chief complaint is that if she does fall she cannot get up due to the heaviness of her legs. Arterial duplex with NATASHA/TBI obtained which demonstrated right moderate stenosis within the SFA and at the left mild
stenosis at SFA and possible infrapopliteal disease.
Past Medical History
Past Medical History: CAD, HTN and Other (Cardiomyopathy, hyperlipidemia)
Past Surgical History: Gynecological
Social History
Tobacco: Smoker
Alcohol: Occasional
Drug: None
Allergies / Home Medications
Allergy/AdvReac Type Severity Reaction Status Date / Time
levofloxacin [From Levaquin] Allergy ANXIETY,FRANCISCA Verified 05/08/17 10:59
LUCINATIONS
ANTIBIOTIC Allergy Unknown Uncoded 05/08/17 10:59
�Medication �Instructions �Recorded �Confirmed �Type
No Meds [No Current Medications] 06/19/24 06/19/24 History
Review of Systems
-
History Source: Patient
Constitutional: Reports No Symptoms
EENT: Reports No Symptoms
Respiratory: Reports Other (Dyspnea on exertion)
Cardiac: Reports No Symptoms
Vascular: Denies Leg Pain / Claudication, Numbness or Tingling
Abdomen/GI: Reports No Symptoms
: Reports No Symptoms
Musculoskeletal: Reports Edema (Bilateral lower extremity edema)
Skin: Reports Other (Bilateral scaled skin)
Neurological: Reports No Symptoms
Endocrine: Reports No Symptoms
Physical Exam
Vital Signs
Temp Pulse Resp BP Pulse Ox
98.3 F 82 22 170/80 93
06/23/24 07:42 06/23/24 09:46 06/23/24 07:42 06/23/24 09:46 06/23/24 07:42
Lab Results
06/21/24 06:48
06/21/24 06:48
Troponin I < 0.012 ng/ml 06/19/24 16:08
Pca-Y-Awdwhluskys Pept 156 pg/ml 06/19/24 16:08
Physical Exam
General: No Apparent Distress
HEENT: Normocephalic and Atraumatic
Respiratory: Non Labored Respirations
Cardiac: Negative JVD
GI: Soft, Non Tender and Non Distended
Musculoskeletal: Edema (Bilateral lower extremities +3 pitting edema) and Other (Unable to palpate distal pulses due to Cody wraps/dressings)
Skin: Warm, Dry and Other
Neuro: Awake and Alert
Psych: Calm
Assessment / Plan
-
Assessment: 84-year-old female admitted for bilateral lower extremity lymphedema with superinfection/cellulitis and concern for capability of independent living status,
Plan:
Recommend continued local wound care and compression at all times when awake
Would recommend patient routinely follow-up with wound care clinic for management of lymphedema in the outpatient setting
Patient endorses no symptoms of claudication or rest pain, therefore would not recommend any surgical vascular intervention for peripheral arterial disease at this time
Can follow-up in the office for continued surveillance of PAD and lymphedema
Smoking cessation
Data Reviewed
-
Ultrasound: Report Reviewed by me, Discussed with Physician, Discussed with Patient and Discussed with Family
Labs: Labs Reviewed by me and Discussed with Physician
[2024-06-23 15:05] VITALS: BP 170/102
[2024-06-23 15:07] VITALS: BP 138/58
[2024-06-23] MEDS: METAMUCIL, KONSYL 1 PACKET PO (16:07)
[2024-06-23 17:26] VITALS: BP 129/79; PULSE 73; O2SAT 93
[2024-06-23] MEDS: LOVENOX 40 MG SC (17:54)
[2024-06-23 23:06] VITALS: BP 159/73
[2024-06-24 07:38] LABS: % Basophils 0.3 % (0-2); % Eosinophils 2.7 % (0-6); % Immature Granulocytes 0.3 % (0-0.5); % Lymphocytes 23.9 % (20.5-51.1); % Monocytes 6.7 % (1.7-9.3); % Neutrophils 66.1 % (42.2-75.2); Absolute Eosinophils 0.2 10^3/uL (0-0.7); Absolute Lymphocytes 1.5 10^3/uL (1.2-3.4); Absolute Monocytes 0.4 10^3/uL (0.1-0.6); Absolute Neutrophils 4.2 10^3/uL (1.4-6.5); Hemoglobin 12.6 g/dL (12.0-16.0); Mean Corp Hgb Conc. 32.3 g/dL (33.0-37.0); Mean Corpuscular Hgb 27.4 pg (27.0-31.0); Mean Corpuscular Volume 84.8 fL (81.0-99.0); Mean Platelet Volume 9.8 fL (7.4-10.4); Nucleated Red Blood Cells % 0 %; Platelet Count 203 10^3/uL (130-400); White Blood Cell Count 6.4 10^3/uL (4.8-10.8)
[2024-06-24 07:40] VITALS: BP 181/90
[2024-06-24 08:07] LABS: Blood Urea Nitrogen 14 mg/dl (7-17); Calcium 8.9 mg/dl (8.4-10.2); Carbon Dioxide 26 mmol/L (22-30); Chloride 110 mmol/L (98-107); Estimated Creatinine Clearance 65 ml/min; Glucose 97 mg/dl (70-99); HDL Cholesterol 42 mg/dl; LDL Cholesterol, Calculated 98 mg/dl; Potassium 4.1 mmol/L (3.5-5.1); Sodium 141 mmol/L (135-145); Total Cholesterol 167 mg/dl (50-199); Triglyceride 137 mg/dl (10-149); Very Low Density Lipoprotein 27 mg/dl (0-30); eGFR > 60.00
--- NOTE | 2024-06-24 09:05 | W.PN.HOSP.TC ---
Today's Communication/Plan
-
Discharge planning today
Assessment / Plan
Assessment / Plan
Physical exam:
General: No acute distress
HEENT: Normocephalic, Atraumatic and Moist Mucous Membranes
Respiratory: Clear to Auscultation; Negative Wheezes, Rales or Rhonchi
Cardiac: Regular Rhythm and S1/S2
GI: Soft, Nontender and Nondistended
Musculoskeletal: No Clubbing, No Cyanosis. Bilateral lower extremity edema. Bilateral lower extremity hyperpigmentation, lichenification, and edema, Cody wraps, no bright red erythema
Neuro: Awake, Alert and Oriented
Psych: Calm
A/P:
Bilateral lower extremity lymphedema with venous stasis dermatitis (ruled out cellulitis):
-continue compression stockings
-Echocardiogram normal EF
-Discussed with family at bedside, son and [id number] yesterday
Evidence of peripheral vascular disease by NATASHA:
-vascular surgery consult appreciated
-Will start her on low-dose aspirin and low-dose statin
Smoker:
-Strongly advised quit smoking in the setting of PVD
Hypertension:
-started on ARB (she has cough with CODY inhibitor).
-Increase losartan to 50 mg p.o. daily
Acute lower GI bleed-diarrhea with bright blood per rectum:
-GI consult appreciated and they felt his hemorrhoidal related and recommended MiraLAX (diarrhea could have been overflow)
-Follow-up GI as outpatient (has never had colonoscopy)
Ruled out acute blood loss anemia:
Hemoglobin stable
DVT prophylaxis:
Lovenox restarted yesterday and tolerated well
SCDs
CODE STATUS
Full code
Anticipated Discharge: Today
Subjective/Interval History
-
Date of Service: June 24, 2024
No new complaints today.
Objective Data
-
Labs:
Laboratory Results
06/24/24
07:26
WBC 6.4
Hgb 12.6
Hct 39.0
Plt Count 203
Sodium 141
Potassium 4.1
Chloride 110 H
Carbon Dioxide 26
BUN 14
Creatinine 0.7
Glucose 97
Calcium 8.9
Vital Signs:
Vital Signs
Temp Pulse Resp BP Pulse Ox
97.9 F 71 20 181/90 93
06/24/24 07:40 06/24/24 07:40 06/24/24 07:40 06/24/24 07:40 06/24/24 07:40
I&O
06/23/24 06/24/24 06/25/24
06:59 06:59 06:59
Intake Total 240 / 240 840 / 840
Balance 240 / 240 840 / 840
[2024-06-24] MEDS: METAMUCIL, KONSYL 1 PACKET PO (09:34)
[2024-06-24] MEDS: COZAAR 25 MG PO ×2 (09:34→12:22)
[2024-06-24] MEDS: HYDROPHOR 1 APPLIC TOPICAL (09:35)
--- NOTE | 2024-06-24 09:51 | CM ---
Miriam at [facility] has a bed for pt.
Spoke with Suman torres he agrees with dc plan to SNF .
IMM reviewed with son .
Son will provide transportation .
[facility]
report [phone]
fax [phone]
PLAN [facility]
--- NOTE | 2024-06-24 10:56 | W.DCSUMMARY ---
Discharge Summary
Discharge Data
Date of Admission: 06/19/24
Date of Discharge: 06/24/24
-
Pending Results: No
Hospital Course
Patient 84 years old female history of hypertension, hyperlipidemia, CAD, chronic lymphedema, presented to the hospital lower extremity edema and ulcerations. Initially she was started on antibiotics but subsequently cellulitis was ruled out and
antibiotics were discontinued. She had compression stockings placed and local wound care. She had an NATASHA test performed and it came back abnormal for peripheral vascular disease so vascular surgery evaluated the patient and they did not recommend
surgical intervention at the moment since patient asymptomatic but they would like to monitor as outpatient. Given her cardiovascular risk factors and peripheral vascular disease we recommended low-dose aspirin and statins. She also was started on
antihypertensive medications with ARB. We also encouraged her to stay away from smoking. Patient also had some diarrhea with rectal bleeding and GI evaluated the patient and felt that this was hemorrhoidal in nature. Of note, patient has never
had a colonoscopy and she will follow-up with GI as outpatient. She had an echocardiogram that was unremarkable and normal EF. Rest of the hospital stay and unremarkable. She will be accepted to a skilled facility for rehab. She will be
discharged in stable condition today.
Discharge duration: 35 minutes
Discharge Plan
-
Patient Disposition: Jail/SNF
Discharge Diagnosis/Procedures: Lymphedema and venous stasis changes. Peripheral vascular disease. Hypertension. Hemorrhoidal bleeding.
Diet: Low Cholesterol
Activity: As tolerated
Blood Work: Please PCP to order CBC, BMP within 1 week
Activity Restrictions/Additional Instructions:
Wound Care Instructions Bilateral LE- Clean daily with soap and water or Vashe. Apply ABD and Briana to any draining areas. Apply Mineral oil to dry areas Apply Compression with CHRISTIANO daily.
Follow up at [facility]
Follow up at wound care center call for an appointment.
Referrals:
Primary care, provider [Other] - in less than 1 week
Rickey Perera III, MD [Active] - 09/17/24 11:45 am
Saroj Hi MD [Active] - (Wound Care Center)
Melani Reyes MD [Active] - in four to six weeks
Prescriptions:
New
aspirin 81 mg capsule
81 mg PO DAILY Qty: 30 0RF
atorvastatin 10 mg tablet
10 mg PO QPM Qty: 30 0RF
losartan 25 mg Tablet
50 mg PO DAILY 30 Days Qty: 60 0RF
polyethylene glycol 3350 [Miralax] 17 gram/dose powder
4 g PO DAILY 10 Days Qty: 40 0RF
Discharge Orders:
Discharge Patient (As Directed); Ordered 06/24/24
Ordered By: Timo Combs
Discharge Date and Time
Discharge Date/Time: 06/24/24 13:36
Print Language: UKRAINIAN
[2024-06-24 11:36] VITALS: BP 165/80
== END 2024-06-24 13:36 | DRG 300 ==
LOC: 4 EAST ACU 18:36
PROVIDERS: Internal Medicine; Physician Assistant; ADMITTING PHYSICIAN Hospitalist; ATTENDING PHYSICIAN Hospitalist; CONSULT PHYSICIAN Internal Medicine Gastroenterology; CONSULT PHYSICIAN Surgery Vascular Surgery; EMERGENCY PHYSICIAN Emergency Medicine
DX: I73.9 Peripheral vascular disease, unspecified (principal); I42.9 Cardiomyopathy, unspecified; K62.5 Hemorrhage of anus and rectum; I89.0 Lymphedema, not elsewhere classified; I10 Essential (primary) hypertension; K64.9 Unspecified hemorrhoids; I25.10 Atherosclerotic heart disease of native coronary artery without angina pectoris; E78.00 Pure hypercholesterolemia, unspecified; F17.210 Nicotine dependence, cigarettes, uncomplicated; I34.0 Nonrheumatic mitral (valve) insufficiency; Z88.1 Allergy status to other antibiotic agents; K59.09 Other constipation; Z80.0 Family history of malignant neoplasm of digestive organs; Z90.710 Acquired absence of both cervix and uterus; Z91.199 Patient's noncompliance with other medical treatment and regimen due to unspecified reason; I87.8 Other specified disorders of veins
CPT/HCPCS: 71046; 80048; 80053; 80061; 83880; 84484; 85025; 85027; 93005; 93306; 93922; 93925; 97162; 97167; 97530; 99285